=== PATIENT | male | born 1945 | race Two or more races ===

== ENCOUNTER → 2019-05-12 | Emergency (ER) | payer OTHER ==
[~2019-05-12] VITALS: Ht 172.7 cm; Wt 90.7 kg
[~2019-05-12] MED LIST: SYNTHROID175 MCG
== END | disposition home or self-care (01) ==
LOC: ER 14:31
DX: S61.227A Laceration with foreign body of left little finger without damage to nail, initial encounter (principal); W22.8XXA Striking against or struck by other objects, initial encounter; Y93.89 Activity, other specified; Y92.238 Other place in hospital as the place of occurrence of the external cause; Y99.8 Other external cause status

== ENCOUNTER 2021-06-24 06:00 | Day surgery (SDC) | payer OTHER ==
[~2021-06-24 06:00] MED LIST changes: -SYNTHROID175 MCG; +SYNTHROID175 MCG PO; +TAMS0.4C PO
== END 2021-06-24 15:50 | disposition home or self-care (01) ==
LOC: CIR.AMB 06:00
PROVIDERS: ATTEND Surgery
DX: K40.30 Unilateral inguinal hernia, with obstruction, without gangrene, not specified as recurrent (principal)

== ENCOUNTER 2023-09-01 06:58 | Day surgery (SDC) | payer OTHER ==
[2023-08-25 13:45] LABS: HEMATOCRIT 47.4 % (39.0-48.0); HEMOGLOBIN 16.3 g/dL (13-16.00); MEAN CELL VOLUME 91.4 fL (80.0-100.00); MEAN CORPUSCULAR HEMOGLOBIN 31.3 pg (27.00-32.0); MEAN CORPUSCULAR HGB CONC 34.3 g/dl (32.0-36.0); PLATELET COUNT 249 K/uL (150-450); RED BLOOD COUNT 5.19 M/uL (4.00-6.00); RED CELL DISTRIBUTION WIDTH 13.6 % (11.5-14.5)
[2023-08-25 13:52] LABS: URINE APPEARANCE Clear; URINE BILIRRUBIN Negative (NEGATIVE); URINE BLOOD Negative; URINE COLOR Yellow; URINE GLUCOSE Negative (NEGATIVE); URINE LEUKOCYTE Negative; URINE NITRATE Negative; URINE PROTEIN Negative (NEGATIVE); URINE UROBILINOGEN 0.2 E.U./dl
[2023-08-25 13:57] LABS: URINE BACTERIA 2.5 uL (0.0-1933); URINE EPITHELIAL CELLS 0.3 uL (0.0-38.8); URINE RBC 1.7 uL (0.0-20.8); URINE WBC 1.2 uL (0.0-23.2)
[2023-08-25 14:33] LABS: CALCIUM 9.7 mg/dL (8.5-10.1); GFR 72.08; POTASSIUM 4.28 mEq/L (3.5-5.1)
[2023-08-25 15:02] LABS: PARTIAL THROMBOPLASTIN TIME 30.6 SECONDS (22.0-34.0); PROTHROMBIN TIME 10.5 SECONDS (9.0-11.5)
[2023-09-01] MEDS ORDERED: CEFAZOLIN SODIUM 1,000 MG VIAL ONE ×2 (09:34)
[2023-09-01] MEDS ORDERED: ENALAPRILAT DIHYDRATE 2.5 MG/2 ML VIAL IV ONE ×2 (09:47→10:15)
[2023-09-01] MEDS ORDERED: POVIDONE-IODINE 118 ML BOTT TOP ONE ×2 (10:11→10:45)
[2023-09-01] MEDS ORDERED: CEFAZOLIN SODIUM 1,000 MG VIAL IV ONE (10:15)
== END 2023-09-01 12:40 | disposition home or self-care (01) ==
LOC: CIR.AMB 06:58
PROVIDERS: ATTEND Surgery Surgery of the Hand
DX: M67.843 Other specified disorders of tendon, right hand (principal); G56.01 Carpal tunnel syndrome, right upper limb